=== PATIENT | female | born 1990 | race Caucasian/White ===

== ENCOUNTER 2020-03-27 10:11 | Emergency (ER) | payer BC ==
[~2020-03-27] VITALS: Ht 167.6 cm; Wt 95.7 kg
[2020-03-27] MEDS ORDERED: MELOXICAM10 GM (10:25)
[2020-03-27] MEDS ORDERED: ZYRTEC10 M5 PO (10:26)
[2020-03-27] MEDS ORDERED: LEXAPRO 10 MG T10 M2 PO (10:26)
[2020-03-27] MEDS ORDERED: AUGMENTIN 875-1 EACH PO (11:19)
[2020-03-27 12:14] VITALS: BP 124/70
== END 2020-03-27 12:14 | disposition home or self-care (01) ==
LOC: M.ERS 10:11
DX: J02.9 Acute pharyngitis, unspecified (principal); Z20.828 Contact with and (suspected) exposure to other viral communicable diseases; J45.909 Unspecified asthma, uncomplicated; Z88.8 Allergy status to other drugs, medicaments and biological substances